=== PATIENT | female | born 1965 | race African-American/Black ===

== ENCOUNTER 2017-02-10 20:56 | Emergency (ER) | payer BC ==
[~2017-02-10] VITALS: Ht 162.6 cm; Wt 70.0 kg
[~2017-02-10 20:56] MED LIST: CARI350T PO; DIAZ10TA4 PO; HYDR-580 PO; LORA-404 PO
[2017-02-10 21:36] VITALS: Ht 162.6 cm; Wt 70.0 kg
[2017-02-11] MEDS ORDERED: IBUPROFEN 200 MG TAB PO ONE
[2017-02-11 00:30] VITALS: BP 144/72; PULSE 76; RESP 14; TEMP 97.8
--- NOTE | 2017-02-11 01:38 | ERD ---
ER Documentation Chief Complaint Chief Complaint pt reports fall from standing HPI 51-year-old female presenting to the emergency department complaining of total body pain from a ground-level fall that occurred last . Patient states that she has full range of motion. She states that usually she takes Percocet and a benzodiazepine for her pain however she did not take it today. Patient is asking for sandwiches and food. She denies any fevers ROS All systems reviewed and are negative except as per history of present illness. Medications Home Meds Reported Medications Lorazepam (Lorazepam) 2 Mg Tablet, 2 MG PO Q12 03/29/12 Diazepam* (Diazepam*) 10 Mg Tablet, 10 MG PO Q8 03/29/12 Carisoprodol* (Soma*) 350 Mg Tablet, 350 MG PO Q8 03/29/12 Hydrocodone Bit-Acetaminophen ([place]) 1 Tab Tablet, 1 TAB PO Q4NARC 03/29/12 Allergies Allergies: Coded Allergies: Penicillins (Verified Allergy, Unknown, 03/29/12) PMhx/Soc Medical and Surgical Hx: pt denies Surgical Hx Hx Miscellaneous Medical Probl: Yes (NERVE DAMAGE CHRONIC PAIN) Hx Alcohol Use: No Hx Substance Use: No Hx Tobacco Use: Yes Smoking Status: Current every day smoker Physical Exam Vitals Vital Signs Date Time Temp Pulse Resp B/P Pulse Ox O2 Delivery O2 Flow Rate FiO2 02/11/17 00:30 97.8 76 14 144/72 99 Room Air 02/10/17 21:36 98.3 73 16 142/82 100 Physical Exam Const: [] Head: Atraumatic Eyes: Normal Conjunctiva ENT: Normal External Ears, Nose and Mouth. Neck: Full range of motion..~ No meningismus. Resp: Clear to auscultation bilaterally Cardio: Regular rate and rhythm, no murmurs Abd: Soft, non tender, non distended. Normal bowel sounds Skin: No petechiae or rashes Back: No midline or flank tenderness Ext: No cyanosis, or edema Neur: Awake and alert Psych: Normal Mood and Affect Results 24 hrs Current Medications Medications (Trade) Dose Ordered Sig/Butch Route PRN Reason Start Time Stop Time Status Last Admin Dose Admin Ibuprofen (Motrin) 400 mg ONCE ONCE PO 02/11/17 00:00 02/11/17 00:01 DC Procedures/MDM Is a well-appearing 51-year-old female presenting to the emergency department complaining of total body pain status post a ground-level fall that occurred last . Patient was ambulating, she did not seem to have any fractures or dislocations. Patient states that she has Percocet at home and I have discussed with her to continue as other physician prescribed. I have given her ibuprofen in the ED and discussed with her to follow-up with her primary care physician. She understands she is neurovascular intact to be discharged home Departure Diagnosis: Primary Impression: Fall with no significant injury Condition: Stable Patient Instructions: Pain Management Referrals: KASANDRA GARSIA MD (PCP) Additional Instructions: FOLLOW UP WITH YOUR PRIMARY CARE PHYSICIAN TOMORROW.Return to this facility if you are not improving as expected. YAMILKA COBB PA-C Feb 11, 2017 01:38
== END 2017-02-11 00:30 | disposition home or self-care (01) ==
LOC: FTE 20:56
DX: Z04.3 Encounter for examination and observation following other accident (principal); F17.210 Nicotine dependence, cigarettes, uncomplicated
CPT/HCPCS: 99282

== ENCOUNTER 2018-08-19 09:06 | Emergency (ER) | payer BC ==
[~2018-08-19] VITALS: Ht 167.6 cm; Wt 68.0 kg
[2018-08-19 09:07] VITALS: Ht 167.6 cm; Wt 68.0 kg
--- NOTE | 2018-08-19 09:28 | ERD ---
ER Documentation Chief Complaint Chief Complaint lower abdominal pain since thursday HPI 53-year-old female who is postmenopausal who presents to the emergency room describing suprapubic abdominal discomfort, dysuria urgency and frequency for the last 3 to 4 days. She denies any fevers or flank pain. No vaginal blee ding. She denies any nausea vomiting diarrhea or constipation. The pain is burning, constant. No migratory pain. ROS All systems reviewed and are negative except as per history of present illness. Medications Home Meds Active Scripts Cephalexin* (Keflex*) 500 Mg Capsule, 500 MG PO BID for 7 Days, CAP Prov:SOUTH JARVIS MD 08/19/18 Phenazopyridine Hcl* (Pyridium*) 100 Mg Tab, 100 MG PO TID PRN for URINARY PAIN, #8 TAB Prov:SOUTH JARVIS MD 08/19/18 Reported Medications Lorazepam (Lorazepam) 2 Mg Tablet, 2 MG PO Q12 03/29/12 Diazepam* (Diazepam*) 10 Mg Tablet, 10 MG PO Q8 03/29/12 Carisoprodol* (Soma*) 350 Mg Tablet, 350 MG PO Q8 03/29/12 Hydrocodone Bit-Acetaminophen ([place]) 1 Tab Tablet, 1 TAB PO Q4NARC 03/29/12 Allergies Allergies: Coded Allergies: Penicillins (Verified Allergy, Unknown, 03/29/12) PMhx/Soc History of Surgery: Yes (CS) Hx Neurological Disorder: No Hx Respiratory Disorders: No Hx Cardiac Disorders: No Hx Psychiatric Problems: No Hx Miscellaneous Medical Probl: Yes (NERVE DAMAGE CHRONIC PAIN) Hx Alcohol Use: No Hx Substance Use: No Hx Tobacco Use: Yes Smoking Status: Current every day smoker FmHx Family History: No diabetes Physical Exam Vitals Vital Signs Date Temp Pulse Resp B/P (MAP) Pulse Ox O2 O2 Flow FiO2 Time Delivery Rate 08/19/18 97.3 85 20 127/72 100 09:07 (90) Physical Exam General: Well developed, well nourished, no acute distress Head: Normocephalic, atraumatic. Eyes: Pupils equally reactive, EOM intact ENT: Moist mucous membranes Neck: Supple, no lymphadenopathy Respiratory: Lungs clear bilaterally, no distress Cardiovascular: RRR, no murmurs, rubs, or gallops Abdominal: Soft, mild focal tenderness to the suprapubic region, negative El sign, no tenderness to McBurney's point, no tenderness to left lower quadrant. : Deferred MSK: No edema, no unilateral swelling, 5/5 strength Neurologic: Alert and oriented, moving all extremities, normal speech, no focal weakness, no cerebellar signs Skin: No rash Psych: Normal mood Results 24 hrs Laboratory Tests Test 08/19/18 09:35 Bedside Urine pH (LAB) 6.0 Bedside Urine Protein (LAB) Trace Bedside Urine Glucose (UA) Negative Bedside Urine Ketones (LAB) Negative Bedside Urine Blood 2+ Bedside Urine Nitrite (LAB) Negative Bedside Urine Leukocyte Esterase (L 1+ Current Medications Medications Dose Sig/Butch Start Time Status Last (Trade) Ordered Route PRN Stop Time Admin Dose Reason Admin Cephalexin 500 mg ONCE ONCE 08/19/18 08/19/18 (Keflex) PO 10:00 09:44 08/19/18 10:01 Procedures/MDM LAB INTERPRETATION: I reviewed the laboratory testing and it shows leukocyte esterase on urine dip MEDICAL DECISION MAKING: Clinical exam, signs and symptoms very consistent with uncomplicated acute cystitis. The abdominal exam is otherwise benign without concern for appen dicitis, diverticulitis or ovarian process. Patient is otherwise well-appearing without systemic signs or symptoms. A urine dip would be appropriate. If shows UTI outpatient therapy with oral antibiotic's would be reasonable. Return precautions were discussed and understood. At this point no indication for laboratory testing or CT imaging of the abdomen pelvis. ER COURSE: * First dose of Keflex given * The patient can be safely discharged with Keflex. She has not had an allergy to penicillin only family history of such. Cephalosporin should be appropriate. First dose given in the emergency room setting. No reaction. * Return precautions were discussed and understood. CONSULTATION: None DISPOSITION PLAN: The patient does not have an identifiable emergent medical condition that warrants inpatient hospitalization at this time. The patient is deemed safe for discharge with outpatient follow-up. We discussed follow up with the patient's primary care doctor within 24 to 48 hours as needed. We also discussed return to the emergency room for worsening symptoms or worsening condition. Outpatient referral: None required Discharge Medications: Pyridium, Keflex Departure Diagnosis: Primary Impression: Acute cystitis Hematuria presence: without hematuria Qualified Codes: N30.00 - Acute cystitis without hematuria Additional Impression: Abdominal pain Abdominal location: lower abdomen, unspecified Qualified Codes: R10.30 - Lower abdominal pain, unspecified Condition: Stable SOUTH JARVIS MD Aug 19, 2018 09:28
[2018-08-19] MEDS ORDERED: PHEN-537 PO (09:37)
[2018-08-19] MEDS ORDERED: CEPH-443 PO (09:37)
[2018-08-19 09:47] VITALS: BP 120/75; PULSE 71; RESP 16
[2018-08-19] MEDS ORDERED: CEPHALEXIN 500 MG CAP PO ONE (10:00)
== END 2018-08-19 10:00 | disposition home or self-care (01) ==
LOC: E/R 09:06
DX: N30.00 Acute cystitis without hematuria (principal); F17.210 Nicotine dependence, cigarettes, uncomplicated; R40.2142 Coma scale, eyes open, spontaneous, at arrival to emergency department; R40.2362 Coma scale, best motor response, obeys commands, at arrival to emergency department; R40.2252 Coma scale, best verbal response, oriented, at arrival to emergency department
CPT/HCPCS: 81003; Z7502; Z7610; 99283